=== PATIENT | female | born 1980 | race Caucasian/White ===

== ENCOUNTER → 2020-09-21 10:38 | Outpatient (CLI) | payer OTHER, SELFPAY ==
--- NOTE | ~2020-09-21 | US_ITS ---
US pelvic complete w TV DATE: 09/21/2020 11:11 INDICATION: Left lower quadrant, pelvic pain TECHNIQUE: Real-time imaging via transabdominal and transvaginal approaches COMPARISON: 12/08/2016 transvaginal ultrasound FINDINGS: The uterus measures 9.8 cm vertical dimension, 4.6 centers AP and 5.0 cm transverse dimensi on. The central endometrial echo complex measures 5 mm, normal. Right ovary 3.3 x 2.6 x 3.2 cm. Left ovary 2.1 x 1.6 x 2.1 cm. There is vascular flow to both ovaries . No abnormal pelvic fluid collection is evident. IMPRESSION: No significant abnormality Reviewed, dictated and finalized at [facility]. Reviewed, dictated and finalized at [facility]. CONTENT PRODUCER IMPRESSION: No significant abnormality
== END ==
PROVIDERS: PCP Family Medicine Adolescent Medicine; Visit Provider Physician Assistant
DX: R10.2 Pelvic and perineal pain (principal)
CPT/HCPCS: 76830; 76856

== ENCOUNTER → 2021-02-25 14:07 | Outpatient (CLI) | payer OTHER, SELFPAY ==
--- NOTE | ~2021-02-25 | US_ITS ---
EXAMINATION: US thyroid DATE: 02/25/2021 14:30 INDICATION: Thyromegaly. TECHNIQUE: Multiple ultrasound images of the thyroid were obtained. COMPARISON: None. FINDINGS: The right thyroid lobe measures 5.0 x 1.0 x 1.3 cm. The left thyroid lobe measures 4.9 x 1.0 x 1.5 c m. There is normal echotexture and echogenicity throughout the thyroid gland. No discrete nodules id entified. Normal vascular flow is present. IMPRESSION: 1. Normal thyroid. Reviewed, dictated and finalized at [facility]. IMPRESSION: 1. Normal thyroid.
== END ==
PROVIDERS: PCP Family Medicine Adolescent Medicine; Visit Provider Family Medicine Adolescent Medicine
DX: E04.9 Nontoxic goiter, unspecified (principal)
CPT/HCPCS: 76536